=== PATIENT | male | born 1955 | race Caucasian/White ===

== ENCOUNTER → 2017-03-02 | Outpatient (CLI) | payer OTHER, BC ==
[~2017-03-02] MED LIST: ACETAMINOPHEN-1 EAC1 PO; ALBUTEROL INH; ALBUTEROL2.5 MG/0.1 INH; ALPRAZOLAM ER1 MG PO; ALPRAZOLAM1 MG PO; ASPIRIN EC81 M1 PO; ATORVASTATIN CA40 MG PO; AZITHROMYCIN PO; B12INJ INJECTION; CELEXA 20 MG TA20 M1 PO; CLEOCIN HCL150 MG PO; CYMBALTA30 MG PO; DEPAKOTE 250MG250 MG PO; DESYREL100 MG PO; DESYREL150 MG PO; DESYREL300 MG PO; DITROPAN XL10 M1 PO; DITROPAN XL10 MG PO; DIVALPROEX SOD250 MG PO; ENDOCET 7.5-321 EACH PO; FENOFIBRATE160 MG PO; GEMFIBROZIL 60600 M1 PO; GEMFIBROZIL 60600 MG PO; GLIPIZIDE 10 MG10 MG PO; GLUCOPHAGE1000 MG PO; GLUCOTROL10 MG PO; GLUMETZA1000 PO; HYDROCHLOROTHIA25 M1 PO; HYDROCODON-ACE1 EAC5 PO; IBUPROFEN 800800 M1 PO; JANUMET XR 1001 EACH PO; JANUVIA100 MG PO; LAMICTAL XR200 MG PO; LISINOPRIL20 MG PO; MELOXICAM7.5 MG PO; MOBIC15 MG PO; MOBIC7.5 MG PO; MUCINEX TA600 MG/TA1 PO; NEURONTIN600 MG PO; NORCO 10-325 T1 EACH PO; NORCO 5-325 TA1 EACH PO; OXYBUTYNIN 5 MG5 M2 PO; OXYBUTYNIN CHLO10 MG PO; PRAVACHOL 20 MG20 M1 PO; PREDNISONE 10 M10 M1 PO; REMERON15 MG PO; REMICADE 1100 MG/VIA; RISPERDAL 1 MG T1 MG PO; RISPERDAL4 M1 PO; VENTOLIN HFA 1818 GM INH; VENTOLIN17 GM INH; XANAX 0.5 MG0.5 M1 PO; XANAX 0.5 MG0.5 MG PO; ZANTAC 150MG T150 MG PO
== END ==
LOC: MRI 10:05
DX: R41.82 Altered mental status, unspecified (principal)

== ENCOUNTER 2017-10-22 11:25 | Inpatient (IN) | payer OTHER, BC ==
[~2017-10-22] VITALS: Ht 175.3 cm; Wt 99.8 kg
[2017-10-22] VITALS (11 sets, daily range): BP systolic 154–203; BP diastolic 90–145
--- NOTE | ~2017-10-22 | HC ---
[facility] [place] [address] CONSULTATION Name: INA HELMS Room #: 358-P [facility] IN M.R.#: [id number] Admission: 10/22/17 Attend Phys: Larry Perales DO Discharge: Date of : 55 Report #: [id number] THIS REPORT FOR: //name// CC: Lrary Hamilton DATE OF SERVICE: 10/22/2017 INDICATION: Hypertensive urgency. HISTORY OF PRESENT ILLNESS: This is a 62-year-old gentleman with a past medical history for CAD, diabetes mellitus, hypertension, presenting with right-sided weakness. For the past few days, he has noted weakness of his right side, slurred speech and unsteady gait. He denies any history of chest pains, dyspnea, palpitations or congestion. There is no history of fever, chills, nausea or diarrhea. In the ER, he was noted to be hypertensive with a systolic blood pressure of [address] of the head does not show any acute bleeds. PAST MEDICAL HISTORY: CAD with stent in 2000. Last cardiac catheterization in 2012 revealed patent LAD stents, moderate disease in a small diagonal artery. Echo from today reveals normal LV systolic function. History of bronchitis, hypertension, diabetes mellitus, hypertension, bipolar disorder, and osteoarthritis. ALLERGIES: INCLUDE PENICILLIN, LAMICTAL. MEDICATIONS: Please see the MAR for full listing of his meds. SOCIAL HISTORY: Negative for tobacco use. FAMILY HISTORY: Negative for premature CAD. REVIEW OF SYSTEMS: A full 10-point review of systems performed. Only the pertinent positives and negatives are described in the HPI. PHYSICAL EXAMINATION: VITAL SIGNS: Blood pressure is 150/80, heart rate is 70 beats per minute. GENERAL APPEARANCE: A mildly overweight male in no acute respiratory distress. HEAD AND EYES: Normocephalic. Sclerae are anicteric. ENT: Oral mucosa moist. NECK: Supple. LUNGS: Clear to auscultation. CARDIAC: Regular rate and rhythm. S1, S2 positive. ABDOMEN: Soft, nontender. Bowel sounds positive. EXTREMITIES: No cyanosis, no edema. [facility] [address] [place] [address] CONSULTATION Name: INA HELMS Room #: 358-[facility] IN M.R.#: [id number] Admission: 10/22/17 Attend Phys: Larry Perales DO Discharge: Date of : 55 Report #: [id number] ECG reveals sinus rhythm, otherwise unremarkable. LABORATORY VALUES: White count is 6.9, hemoglobin 17.1. Sodium is 135, creatinine is 0.9. Troponin is negative. ASSESSMENT AND PLAN: 1. Hypertensive urgency, his blood pressure is improved since his initial admission. The plan is to continue with his current medical regimen, although would not lower his systolic blood pressure below 140 mmHg given his neurologic presentation. If the blood pressure is above 170, consider giving IV hydralazine. 2. Coronary artery disease with remote stenting, stable with no anginal symptoms. Continue with aspirin. 3. Right-sided weakness, neuro followup. 4. Hypercholesterolemia, continue with statins. 5. Diabetes mellitus, continue with insulin and check fingersticks. 6. History of bronchitis, appears to be stable at this time. Thank you for allowing me to participate in the care of your patient. <ELECTRONICALLY SIGNED> By: Cirilo Martinez MD 10/23/17 0832 1642 [id number] Cirilo Martinez MD /nt
--- NOTE | ~2017-10-22 | 2DMMODE ---
[facility] [address] [place] [address] 2 D/M-MODE ECHOCARDIOGRAM Name: SCOOTERINA HENDERSON Room #: 358-P [facility] IN .R.#: [id number] Admission: 10/22/17 Attend Phys: Larry Perales, Discharge: Date of : 55 Date of Service: 10/22/17 1601 Report #: [id number] THIS REPORT FOR: //name// APPROVED REPORT Study performed: 10/22/2017 16:20:04 EXAM: Comprehensive 2D, Doppler, and color-flow Echocardiogram Patient Location: Echo lab Room #: [facility] Status: routine BSA: 2.15 HR: 78 bpm BP: 187/114 mmHg Rhythm: NSR Other Information Study Quality: Adequate Risk Factors: Cardiac Risk Factors: HTN, Hyperlipidemia, DM Indications CVA/TIA Echo Enhancing Agent Indication: Rule Out Septal Defect Agent(s) / Amount(s) Used: Agitated Saline 7 cc 2D Dimensions RVDd: 26.75 mm LVEF(%): 54.62 (>50%) IVSd: 11.05 (7-11mm) LVOT Diam: 23.03 (18-24mm) LVDd: 44.93 mm PWd: 10.66 (7-11mm) Ascending Ao: 31.10 (22-36mm) LVDs: 32.27 (25-40mm) Aortic Root: 33.70 mm Jasso's LVEF: 54.62 % Volumes Left Atrial Volume (Systole) Single Plane 4CH: 37.37 mL Single Plane 2CH: 42.83 mL LA ESV Index: 21.00 mL/m2 Aortic Valve AoV Peak Abdulkadir.: 1.23 m/s [facility] [place] [place] [address] 2 D/M-MODE ECHOCARDIOGRAM Name: INA HELMS Room #: 358-P [facility] IN ..#: [id number] Admission: 10/22/17 Attend Phys: Larry Perales, Discharge: Date of : 55 Date of Service: 10/22/17 1601 Report #: [id number] AO Peak Gr.: 6.09 mmHg LVOT Max P.33 mmHg LVOT Max V: 0.91 m/s ABRAHAM Vmax: 3.08 cm2 Mitral Valve E/A Ratio: 0.8 MV Decel. Time: 360.80 ms MV E Max Abdulkadir.: 0.69 m/s MV A Abdulkadir.: 0.85 m/s MV PHT: 104.63 ms IVRT: 156.86 ms TDI E/Lateral E': 13.80 E/Medial E': 17.25 Medial E' Abdulkadir.: 0.04 m/s Lateral E' Abdulkadir.: 0.05 m/s Pulmonary Valve PV Peak Abdulkadir.: 0.94 m/s PV Peak Gr.: 3.53 mmHg Pulmonary Vein P Vein S: 0.33 m/s P Vein A: 0.29 m/s P Vein D: 0.25 m/s P Vein A Dur.: 115.3 msec P Vein S/D Ratio: 1.32 Left Ventricle The left ventricle is normal size. There is normal LV segmental wall motion. Borderline concentric left ventricular hypertrophy. Left ventricular systolic function is normal. The left ventricular ejection fraction is within the normal range. LVEF is 55-60%. Grade I - abnormal relaxation pattern. Right Ventricle The right ventricle is normal size. The right ventricular systolic function is normal. Atria The left atrium size is normal. Injection of bubbles documented no interatrial shunt. The right atrium size is normal. Aortic Valve The aortic valve is normal in structure. No aortic regurgitation is present. There is no aortic valvular stenosis. Mitral Valve The mitral valve is normal in structure. There is no mitral valve [facility] [address] [place] [address] 2 D/M-MODE ECHOCARDIOGRAM Name: INA HELMS Room #: 358-P [facility] IN M.R.#: [id number] Admission: 10/22/17 Attend Phys: Larry Perales, Discharge: Date of : 55 Date of Service: 10/22/17 1601 Report #: [id number] regurgitation noted. No evidence of mitral valve stenosis. Tricuspid Valve The tricuspid valve is normal in structure. There is no tricuspid valve regurgitation noted. Pulmonic Valve The pulmonary valve is normal in structure. There is no pulmonic valvular regurgitation. Great Vessels The aortic root is normal in size. IVC is normal in size and collapses with >50% inspiration. Pericardium There is no pericardial effusion. <Conclusion> The left ventricle is normal size. Left ventricular systolic function is normal. Grade I - abnormal relaxation pattern. The right ventricle is normal size. Injection of bubbles documented no interatrial shunt. The aortic valve is normal in structure. The mitral valve is normal in structure. <ELECTRONICALLY SIGNED> By: Cirilo Martinez MD 10/22/17 160 160 00 Cirilo Martinez MD /INF
--- NOTE | ~2017-10-22 | HC ---
[facility] [place] [address] CONSULTATION Name: INA HELMS Room #: 358-P [facility] IN M.R.#: [id number] Admission: 10/22/17 Attend Phys: Larry Perales DO Discharge: 10/23/17 Date of : 55 Report #: [id number] THIS REPORT FOR: //name// CC: Larry Hamilton DATE OF SERVICE: 10/23/2017 HISTORY OF PRESENT ILLNESS: This is a 62-year-old male patient who was evaluated by me for the numbness on the right side of the body. This has actually started day prior to the admission. It started spontaneously without any trauma. There was only minor weakness associated with it. He may have had some slurring of the speech, but it was minor. The symptoms have mostly resolved. This patient was admitted and they forgot to call me the consult and forgot to put it in the computer. It was done this evening and I was called to see this patient this evening and I did that. REVIEW OF SYSTEMS: Indicate that this patient does have a history of stent placement. There is a question of stroke 20 years ago, but he never had any symptoms from it. He has longstanding hypertension and this has been difficult to control. He is also diabetic. It is not clear how much control there is for that also. He is not a smoker. He has a bipolar disorder and he indicates he is disabled because of that. Otherwise, he feels back to his baseline and he does not think there is any new eye, ENT, cardiac, respiratory, GI, , musculoskeletal, constitutional, dermatological, hematological, psychiatric, throat, allergic symptom associated with present symptomatology. PAST MEDICAL HISTORY: Question of stroke, but history is not clear. FAMILY HISTORY: Negative for seizures or epilepsy. SOCIAL HISTORY: He says he does not smoke or drink any alcohol. PHYSICAL EXAMINATION: Indicate he is alert, responsive, oriented. His speech, concentration, fund of knowledge and memory is at his baseline. His cranial nerve examination 2-12 is unremarkable. He does have some subjective numbness on the right side of the face and right side of the body. His strength looks mostly symmetrical and so is tone. Reflexes and even sensation objectively he can feel the touch without any problem. He does not have any papilledema. There is no carotid bruit. He has no cerebellar sign. He is a well-developed individual who does not have any dysmorphic features of eyes, ears and face. His vision and hearing looks adequate. Cardiac examination does not show any atrial fibrillation or any respiratory difficulty. There is no rhonchi on either side. Heart sounds looks unremarkable. His pulses are difficult to [facility] [address] [place] [address] CONSULTATION Name: INA HELMS Room #: 358-P [facility] IN M.R.#: [id number] Admission: 10/22/17 Attend Phys: Larry Perales DO Discharge: 10/23/17 Date of : 55 Report #: [id number] feel, but he has no edema, cyanosis or jaundice. Last blood pressure is 144/90, respirations 18, pulse is 90, temperature is 97.9. LABORATORY DATA: Indicate a normal white count. Last blood glucose was 209. His LDL was 54. His CT angiogram was reviewed with on-call radiologist ibeth. He does not think there is any significant finding there and he correlated with the MRI and he did not think any further workup is indicated. I discussed that aspect with the patient and he wants to go home. IMPRESSION: 1. Lacunar cerebrovascular accident. 2. Diabetes and hypertension. 3. History of bipolar disorder. RECOMMENDATION: I discussed the situation with the patient and my recommendation is: 1. Full dose aspirin. 2. Controlling the risk factor tightly especially the diabetes and hypertension. 3. He needs some other workup like homocysteine and cardiolipin antibodies, collagen vascular workup. That cannot be done as an inpatient because he desperately wants to go home. He can go home and follow up with me in 1 week and we can try to do that workup as an outpatient. 4. I discussed with him all the signs for the stroke for which he needs to go to Emergency Room emergently and he understands that. more than 50 minutes of time was spent taking care of this patient today and majority of that time was spent counseling the patient on above matters Thank you very much for this referral and if you have any question, please feel free to contact me. <ELECTRONICALLY SIGNED> By: Himanshu Urena MD 10/27/17 0943 1855 21 Himanshu Urena MD /nt
--- NOTE | ~2017-10-22 | EKG ---
[address] [place] [address] ELECTROCARDIOGRAM REPORT Name: INA HELMS Room #: 358-P ADM IN M.R.#: [id number] Admission: 10/22/17 Attend Phys: Larry Perales DO Discharge: Date of : 55 Report #: [id number] THIS REPORT FOR: //name// 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
[2017-10-22 11:44] LABS: HEMATOCRIT 47.6 % (42.0-52.0); HEMOGLOBIN 17.1 gm/dL (14.0-18.0); MCH 32.6 pg (26.0-34.0); MCHC 35.9 g/dL (28.0-37.0); MCV 90.8 fL (80.0-100.0); RBC 5.24 mil/uL (4.50-6.00); RDW 13.2 % (10.5-14.5); WBC 6.9 thou/uL (4.0-11.0)
[2017-10-22] MEDS ORDERED: SULINDAC 150 M150 MG PO (11:52)
[2017-10-22] MEDS ORDERED: ZANTAC 150MG T150 MG PO (11:52)
[2017-10-22] MEDS ORDERED: HYDROCHLOROTHIA25 M2 PO (11:52)
[2017-10-22] MEDS ORDERED: LISINOPRIL20 MG PO (11:52)
[2017-10-22] MEDS ORDERED: JANUMET 50-5001 EACH PO (11:52)
[2017-10-22] MEDS ORDERED: VOLTAREN GEL 1100 G2 TOP (11:53)
[2017-10-22] MEDS ORDERED: DOXYCYCLINE 10100 MG PO (11:53)
[2017-10-22] MEDS ORDERED: KETOCONAZOLE15 GM (11:54)
[2017-10-22] MEDS ORDERED: ALBUTEROL2.5 MG/31 INH (11:55)
[2017-10-22] MEDS ORDERED: VENTOLIN HFA 1818 GM INH (11:55)
[2017-10-22] MEDS ORDERED: OLANZAPINE10 MG PO (11:56)
[2017-10-22] MEDS ORDERED: XANAX1 MG PO (11:56)
[2017-10-22] MEDS ORDERED: TRAZODONE HCL100 MG PO (11:57)
[2017-10-22] MEDS ORDERED: DICLOFENAC SODI75 MG PO (11:57)
[2017-10-22] MEDS ORDERED: HYDROCODONE-AP1 EAC6 PO (11:57)
[2017-10-22] MEDS ORDERED: UNICOMPLEX M TA1 TA1 PO (11:58)
[2017-10-22] MEDS ORDERED: OXYBUTYNIN 5 MG5 M2 PO (11:58)
[2017-10-22 12:07] LABS: PROTIME 10.3 Seconds (9.3-11.4)
[2017-10-22 12:17] LABS: ANION GAP 9 mmol/L (7-16); BUN 9 mg/dL (7-18); CALCIUM 9.1 mg/dL (8.5-10.1); CHLORIDE 100 mmol/L (98-107); CO2 26 mmol/L (21-32); CREATININE 0.9 mg/dL (0.7-1.3); GLUCOSE 259 mg/dL (74-106); POTASSIUM 3.9 mmol/L (3.5-5.1); SODIUM 135 mmol/L (136-145)
[2017-10-22 12:20] LABS: URINE BILIRUBIN NEGATIVE (Negative); URINE BLOOD NEGATIVE (Negative); URINE COLOR YELLOW; URINE GLUCOSE-RANDOM* 2+ (Negative); URINE KETONES NEGATIVE (Negative); URINE LEUKOCYTES-REFLEX NEGATIVE (Negative); URINE PROTEIN (DIPSTICK) NEGATIVE (Negative); URINE UROBILINOGEN 0.2 E.U./dl (0.2-1.0)
[2017-10-22 12:26] LABS: TROPONIN-I < 0.04 ng/mL (<0.06)
[2017-10-22 16:14] LABS: AMP/METHAMP Negative (Negative); BARBITURATES Negative (Negative); BENZODIAZEPINES POSITIVE (Negative); COCAINE Negative (Negative); METHADONE Negative (Negative); OPIATES Negative (Negative); PCP Negative (Negative)
[2017-10-22 17:23] LABS: FOLIC ACID > 40.0 ng/mL (8.6-58.9)
[2017-10-23] VITALS (10 sets, daily range): BP systolic 136–176; BP diastolic 85–101
[2017-10-23 03:28] LABS: CALCIUM 8.9 mg/dL (8.5-10.1); MAGNESIUM 1.9 mg/dL (1.8-2.4); POTASSIUM 3.5 mmol/L (3.5-5.1)
[2017-10-23] MEDS ORDERED: LIPITOR 20 MG T20 M1 PO (19:12)
[2017-10-23] MEDS ORDERED: COREG6.25 MG PO (19:12)
[2017-10-23] MEDS ORDERED: ASPIRIN EC325 MG PO (19:20)
== END 2017-10-23 19:55 | disposition home or self-care (01) | DRG 65 ==
LOC: ER 11:25 → EROBS 13:35 → 3W 14:21
PROVIDERS: Emergency Medicine; Family Medicine; Nurse Practitioner
DX: I63.9 Cerebral infarction, unspecified (principal); I16.1 Hypertensive emergency; I10 Essential (primary) hypertension; I25.10 Atherosclerotic heart disease of native coronary artery without angina pectoris; I16.0 Hypertensive urgency; E78.00 Pure hypercholesterolemia, unspecified; M79.7 Fibromyalgia; Z66 Do not resuscitate; F31.9 Bipolar disorder, unspecified; M19.90 Unspecified osteoarthritis, unspecified site; E11.65 Type 2 diabetes mellitus with hyperglycemia; F17.210 Nicotine dependence, cigarettes, uncomplicated; Z79.84 Long term (current) use of oral hypoglycemic drugs; Z79.4 Long term (current) use of insulin; Z79.82 Long term (current) use of aspirin; Z79.899 Other long term (current) drug therapy; Z88.0 Allergy status to penicillin; Z88.8 Allergy status to other drugs, medicaments and biological substances; Z82.49 Family history of ischemic heart disease and other diseases of the circulatory system; Z80.9 Family history of malignant neoplasm, unspecified; Z83.3 Family history of diabetes mellitus
CPT/HCPCS: 10779

== ENCOUNTER → 2017-12-01 | Outpatient (CLI) | payer OTHER, BC ==
[~2017-12-01] MED LIST changes: +ALBUTEROL2.5 MG/31 INH; +ASPIRIN EC325 MG PO; +COREG6.25 MG PO; +DICLOFENAC SODI75 MG PO; +DOXYCYCLINE 10100 MG PO; +HYDROCHLOROTHIA25 M2 PO; +HYDROCODONE-AP1 EAC6 PO; +JANUMET 50-5001 EACH PO; +KETOCONAZOLE15 GM; +LIPITOR 20 MG T20 M1 PO; +OLANZAPINE10 MG PO; +SULINDAC 150 M150 MG PO; +TRAZODONE HCL100 MG PO; +UNICOMPLEX M TA1 TA1 PO; +VOLTAREN GEL 1100 G2 TOP; +XANAX1 MG PO
== END ==
LOC: MRI 13:50
DX: I63.9 Cerebral infarction, unspecified (principal); I10 Essential (primary) hypertension; E11.9 Type 2 diabetes mellitus without complications; I25.10 Atherosclerotic heart disease of native coronary artery without angina pectoris; E78.5 Hyperlipidemia, unspecified

== ENCOUNTER → 2018-06-15 | Outpatient (CLI) | payer OTHER, BC | LOC: MRI 09:56 | DX: G45.9 Transient cerebral ischemic attack, unspecified (principal); E11.59 Type 2 diabetes mellitus with other circulatory complications; Z79.4 Long term (current) use of insulin; Z86.73 Personal history of transient ischemic attack (TIA), and cerebral infarction without residual deficits ==

== ENCOUNTER 2018-09-30 09:25 | Emergency (ER) | payer OTHER, BC ==
[~2018-09-30] VITALS: Ht 175.3 cm; Wt 102.1 kg
[2018-09-30] MEDS ORDERED: ZALEPLON 10 MG10 M1 PO (09:41)
[2018-09-30] MEDS ORDERED: HUMALOG100 UNIT/1 SUBQ (09:43)
[2018-09-30] MEDS ORDERED: LANTUS SUBQ (09:44)
[2018-09-30] MEDS ORDERED: LIDOCAINE1 EACH TRANSDERM (11:21)
[2018-09-30] MEDS ORDERED: NORCO 5-325 TA1 EACH PO (11:21)
[2018-09-30 11:44] VITALS: BP 168/73
== END 2018-09-30 11:45 | disposition home or self-care (01) ==
LOC: ER 09:25
DX: S22.31XA Fracture of one rib, right side, initial encounter for closed fracture (principal); E10.9 Type 1 diabetes mellitus without complications; I10 Essential (primary) hypertension; E78.5 Hyperlipidemia, unspecified; G47.00 Insomnia, unspecified; Z87.891 Personal history of nicotine dependence; Z88.0 Allergy status to penicillin; Z96.651 Presence of right artificial knee joint; Z95.5 Presence of coronary angioplasty implant and graft; Z96.612 Presence of left artificial shoulder joint; W18.39XA Other fall on same level, initial encounter; Y92.89 Other specified places as the place of occurrence of the external cause; Y93.89 Activity, other specified; Y99.8 Other external cause status

== ENCOUNTER → 2019-11-29 | Outpatient (CLI) | payer OTHER, BC ==
[~2019-11-29] MED LIST changes: +HUMALOG100 UNIT/1 SUBQ; +LANTUS SUBQ; +LIDOCAINE1 EACH TRANSDERM; +ZALEPLON 10 MG10 M1 PO
== END ==
LOC: HYPER 14:07
DX: R21 Rash and other nonspecific skin eruption (principal); B37.2 Candidiasis of skin and nail; A60.02 Herpesviral infection of other male genital organs; D51.0 Vitamin B12 deficiency anemia due to intrinsic factor deficiency; E66.01 Morbid (severe) obesity due to excess calories; E78.5 Hyperlipidemia, unspecified; G46.4 Cerebellar stroke syndrome; J01.40 Acute pansinusitis, unspecified; I10 Essential (primary) hypertension; F25.0 Schizoaffective disorder, bipolar type; F31.9 Bipolar disorder, unspecified; F41.9 Anxiety disorder, unspecified; Z86.73 Personal history of transient ischemic attack (TIA), and cerebral infarction without residual deficits; Z87.891 Personal history of nicotine dependence; Z79.82 Long term (current) use of aspirin; Z68.34 Body mass index [BMI] 34.0-34.9, adult

== ENCOUNTER → 2019-12-06 | Outpatient (CLI) | payer OTHER, BC | LOC: HYPER 08:59 | DX: E11.628 Type 2 diabetes mellitus with other skin complications (principal); B37.2 Candidiasis of skin and nail; R21 Rash and other nonspecific skin eruption; J01.40 Acute pansinusitis, unspecified; A60.02 Herpesviral infection of other male genital organs; D51.0 Vitamin B12 deficiency anemia due to intrinsic factor deficiency; E78.5 Hyperlipidemia, unspecified; G46.4 Cerebellar stroke syndrome; I10 Essential (primary) hypertension; E66.01 Morbid (severe) obesity due to excess calories; F41.9 Anxiety disorder, unspecified; F31.9 Bipolar disorder, unspecified; Z68.34 Body mass index [BMI] 34.0-34.9, adult; Z86.73 Personal history of transient ischemic attack (TIA), and cerebral infarction without residual deficits; Z87.891 Personal history of nicotine dependence; Z79.4 Long term (current) use of insulin; Z79.82 Long term (current) use of aspirin ==

== ENCOUNTER 2019-12-14 15:17 | Emergency (ER) | payer OTHER, BC ==
[~2019-12-14] VITALS: Ht 172.7 cm; Wt 104.3 kg
[2019-12-14] MEDS ORDERED: MOBIC15 MG PO (17:08)
[2019-12-14 17:32] VITALS: BP 163/97
== END 2019-12-14 17:46 | disposition home or self-care (01) ==
LOC: ER 15:17
DX: M25.561 Pain in right knee (principal); I10 Essential (primary) hypertension; I25.10 Atherosclerotic heart disease of native coronary artery without angina pectoris; E10.9 Type 1 diabetes mellitus without complications; E78.5 Hyperlipidemia, unspecified; Z96.612 Presence of left artificial shoulder joint; Z95.5 Presence of coronary angioplasty implant and graft; Z87.891 Personal history of nicotine dependence; Z88.0 Allergy status to penicillin; Z88.8 Allergy status to other drugs, medicaments and biological substances

== ENCOUNTER → 2019-12-20 | Outpatient (CLI) | payer OTHER, BC | LOC: HYPER 09:12 | DX: R21 Rash and other nonspecific skin eruption (principal); B37.2 Candidiasis of skin and nail; A60.02 Herpesviral infection of other male genital organs; E66.01 Morbid (severe) obesity due to excess calories; E11.9 Type 2 diabetes mellitus without complications; D51.0 Vitamin B12 deficiency anemia due to intrinsic factor deficiency; E78.5 Hyperlipidemia, unspecified; G46.4 Cerebellar stroke syndrome; I10 Essential (primary) hypertension; J01.40 Acute pansinusitis, unspecified; F31.9 Bipolar disorder, unspecified; F41.9 Anxiety disorder, unspecified; F25.0 Schizoaffective disorder, bipolar type; Z86.73 Personal history of transient ischemic attack (TIA), and cerebral infarction without residual deficits; Z68.34 Body mass index [BMI] 34.0-34.9, adult; Z95.1 Presence of aortocoronary bypass graft; Z87.891 Personal history of nicotine dependence ==

== ENCOUNTER → 2020-01-03 | Outpatient (CLI) | payer OTHER, BC | LOC: HYPER 10:02 | DX: E11.628 Type 2 diabetes mellitus with other skin complications (principal); B37.2 Candidiasis of skin and nail; R21 Rash and other nonspecific skin eruption; J01.40 Acute pansinusitis, unspecified; A60.02 Herpesviral infection of other male genital organs; E78.5 Hyperlipidemia, unspecified; G46.4 Cerebellar stroke syndrome; D51.0 Vitamin B12 deficiency anemia due to intrinsic factor deficiency; I10 Essential (primary) hypertension; E66.01 Morbid (severe) obesity due to excess calories; F25.0 Schizoaffective disorder, bipolar type; F31.9 Bipolar disorder, unspecified; F41.9 Anxiety disorder, unspecified; Z68.34 Body mass index [BMI] 34.0-34.9, adult; Z86.73 Personal history of transient ischemic attack (TIA), and cerebral infarction without residual deficits; Z87.891 Personal history of nicotine dependence; Z95.1 Presence of aortocoronary bypass graft ==

== ENCOUNTER → 2020-01-10 | Outpatient (CLI) | payer OTHER, BC | LOC: HYPER 10:16 | DX: E11.622 Type 2 diabetes mellitus with other skin ulcer (principal); L89.323 Pressure ulcer of left buttock, stage 3; L89.313 Pressure ulcer of right buttock, stage 3; L98.411 Non-pressure chronic ulcer of buttock limited to breakdown of skin; L89.153 Pressure ulcer of sacral region, stage 3; L98.491 Non-pressure chronic ulcer of skin of other sites limited to breakdown of skin; R21 Rash and other nonspecific skin eruption; B37.2 Candidiasis of skin and nail; A60.02 Herpesviral infection of other male genital organs; D51.0 Vitamin B12 deficiency anemia due to intrinsic factor deficiency; E78.5 Hyperlipidemia, unspecified; G46.4 Cerebellar stroke syndrome; I10 Essential (primary) hypertension; E66.01 Morbid (severe) obesity due to excess calories; F25.0 Schizoaffective disorder, bipolar type; F31.9 Bipolar disorder, unspecified; F41.9 Anxiety disorder, unspecified; Z86.73 Personal history of transient ischemic attack (TIA), and cerebral infarction without residual deficits; Z87.891 Personal history of nicotine dependence; Z68.34 Body mass index [BMI] 34.0-34.9, adult; Z79.82 Long term (current) use of aspirin; Z79.4 Long term (current) use of insulin ==

== ENCOUNTER → 2020-01-17 | Outpatient (CLI) | payer OTHER, BC | LOC: HYPER 09:10 | DX: E11.622 Type 2 diabetes mellitus with other skin ulcer (principal); L89.323 Pressure ulcer of left buttock, stage 3; L89.313 Pressure ulcer of right buttock, stage 3; L98.411 Non-pressure chronic ulcer of buttock limited to breakdown of skin; L89.153 Pressure ulcer of sacral region, stage 3; L98.491 Non-pressure chronic ulcer of skin of other sites limited to breakdown of skin; R21 Rash and other nonspecific skin eruption; B37.2 Candidiasis of skin and nail; J01.40 Acute pansinusitis, unspecified; A60.02 Herpesviral infection of other male genital organs; D51.0 Vitamin B12 deficiency anemia due to intrinsic factor deficiency; E78.5 Hyperlipidemia, unspecified; G46.4 Cerebellar stroke syndrome; I10 Essential (primary) hypertension; E66.01 Morbid (severe) obesity due to excess calories; F25.0 Schizoaffective disorder, bipolar type; F41.9 Anxiety disorder, unspecified; F31.9 Bipolar disorder, unspecified; Z68.36 Body mass index [BMI] 36.0-36.9, adult; Z86.73 Personal history of transient ischemic attack (TIA), and cerebral infarction without residual deficits; Z87.891 Personal history of nicotine dependence; Z79.82 Long term (current) use of aspirin; Z79.4 Long term (current) use of insulin ==

== ENCOUNTER → 2020-01-25 | Outpatient (CLI) | payer OTHER, BC | LOC: HYPER 14:58 | DX: E11.622 Type 2 diabetes mellitus with other skin ulcer (principal); L89.323 Pressure ulcer of left buttock, stage 3; L89.313 Pressure ulcer of right buttock, stage 3; L98.411 Non-pressure chronic ulcer of buttock limited to breakdown of skin; L89.153 Pressure ulcer of sacral region, stage 3; L98.491 Non-pressure chronic ulcer of skin of other sites limited to breakdown of skin; R21 Rash and other nonspecific skin eruption; B37.2 Candidiasis of skin and nail; J01.40 Acute pansinusitis, unspecified; A60.02 Herpesviral infection of other male genital organs; D51.0 Vitamin B12 deficiency anemia due to intrinsic factor deficiency; E78.5 Hyperlipidemia, unspecified; G46.4 Cerebellar stroke syndrome; I10 Essential (primary) hypertension; E66.01 Morbid (severe) obesity due to excess calories; F25.0 Schizoaffective disorder, bipolar type; F41.9 Anxiety disorder, unspecified; F31.9 Bipolar disorder, unspecified; Z68.36 Body mass index [BMI] 36.0-36.9, adult; Z87.891 Personal history of nicotine dependence; Z79.4 Long term (current) use of insulin; Z79.82 Long term (current) use of aspirin ==

== ENCOUNTER → 2020-02-01 | Outpatient (CLI) | payer OTHER, BC | LOC: HYPER 09:37 | DX: E11.622 Type 2 diabetes mellitus with other skin ulcer (principal); L89.153 Pressure ulcer of sacral region, stage 3; L98.491 Non-pressure chronic ulcer of skin of other sites limited to breakdown of skin; R21 Rash and other nonspecific skin eruption; A60.02 Herpesviral infection of other male genital organs; B37.2 Candidiasis of skin and nail; D51.0 Vitamin B12 deficiency anemia due to intrinsic factor deficiency; J01.40 Acute pansinusitis, unspecified; E66.01 Morbid (severe) obesity due to excess calories; E78.5 Hyperlipidemia, unspecified; G46.4 Cerebellar stroke syndrome; I10 Essential (primary) hypertension; F25.0 Schizoaffective disorder, bipolar type; F31.9 Bipolar disorder, unspecified; F41.9 Anxiety disorder, unspecified; Z86.73 Personal history of transient ischemic attack (TIA), and cerebral infarction without residual deficits; Z87.891 Personal history of nicotine dependence; Z95.1 Presence of aortocoronary bypass graft; Z68.34 Body mass index [BMI] 34.0-34.9, adult ==

== ENCOUNTER → 2020-02-08 | Outpatient (CLI) | payer OTHER, BC | LOC: HYPER 14:46 | DX: E11.622 Type 2 diabetes mellitus with other skin ulcer (principal); L89.313 Pressure ulcer of right buttock, stage 3; L89.323 Pressure ulcer of left buttock, stage 3; L98.411 Non-pressure chronic ulcer of buttock limited to breakdown of skin; L89.153 Pressure ulcer of sacral region, stage 3; L98.491 Non-pressure chronic ulcer of skin of other sites limited to breakdown of skin; R21 Rash and other nonspecific skin eruption; A60.02 Herpesviral infection of other male genital organs; B37.2 Candidiasis of skin and nail; D51.0 Vitamin B12 deficiency anemia due to intrinsic factor deficiency; E66.01 Morbid (severe) obesity due to excess calories; E78.5 Hyperlipidemia, unspecified; G46.4 Cerebellar stroke syndrome; I10 Essential (primary) hypertension; J01.40 Acute pansinusitis, unspecified; F25.0 Schizoaffective disorder, bipolar type; F31.9 Bipolar disorder, unspecified; F41.9 Anxiety disorder, unspecified; Z86.73 Personal history of transient ischemic attack (TIA), and cerebral infarction without residual deficits; Z87.891 Personal history of nicotine dependence; Z95.1 Presence of aortocoronary bypass graft; Z68.34 Body mass index [BMI] 34.0-34.9, adult ==

== ENCOUNTER → 2020-02-15 | Outpatient (CLI) | payer OTHER, BC | LOC: HYPER 10:36 | DX: E11.622 Type 2 diabetes mellitus with other skin ulcer (principal); L89.313 Pressure ulcer of right buttock, stage 3; L89.323 Pressure ulcer of left buttock, stage 3; L98.411 Non-pressure chronic ulcer of buttock limited to breakdown of skin; A60.02 Herpesviral infection of other male genital organs; E66.01 Morbid (severe) obesity due to excess calories; D51.0 Vitamin B12 deficiency anemia due to intrinsic factor deficiency; L30.9 Dermatitis, unspecified; B37.2 Candidiasis of skin and nail; R21 Rash and other nonspecific skin eruption; I10 Essential (primary) hypertension; E78.5 Hyperlipidemia, unspecified; G46.4 Cerebellar stroke syndrome; J01.40 Acute pansinusitis, unspecified; F25.0 Schizoaffective disorder, bipolar type; F31.9 Bipolar disorder, unspecified; F41.9 Anxiety disorder, unspecified; Z86.73 Personal history of transient ischemic attack (TIA), and cerebral infarction without residual deficits; Z95.1 Presence of aortocoronary bypass graft; Z87.891 Personal history of nicotine dependence ==

== ENCOUNTER → 2020-02-29 | Outpatient (CLI) | payer OTHER, BC | LOC: HYPER 10:26 | DX: E11.622 Type 2 diabetes mellitus with other skin ulcer (principal); L89.153 Pressure ulcer of sacral region, stage 3; L98.491 Non-pressure chronic ulcer of skin of other sites limited to breakdown of skin; R21 Rash and other nonspecific skin eruption; A60.02 Herpesviral infection of other male genital organs; E66.01 Morbid (severe) obesity due to excess calories; E78.5 Hyperlipidemia, unspecified; D51.0 Vitamin B12 deficiency anemia due to intrinsic factor deficiency; G46.4 Cerebellar stroke syndrome; G89.29 Other chronic pain; I10 Essential (primary) hypertension; J01.40 Acute pansinusitis, unspecified; F25.0 Schizoaffective disorder, bipolar type; F31.9 Bipolar disorder, unspecified; F41.9 Anxiety disorder, unspecified; Z87.891 Personal history of nicotine dependence; Z86.73 Personal history of transient ischemic attack (TIA), and cerebral infarction without residual deficits; Z95.1 Presence of aortocoronary bypass graft ==

== ENCOUNTER → 2020-03-07 | Outpatient (CLI) | payer OTHER, BC | LOC: HYPER 11:03 | DX: E11.622 Type 2 diabetes mellitus with other skin ulcer (principal); L89.313 Pressure ulcer of right buttock, stage 3; L89.323 Pressure ulcer of left buttock, stage 3; L89.153 Pressure ulcer of sacral region, stage 3; R21 Rash and other nonspecific skin eruption; A60.02 Herpesviral infection of other male genital organs; D51.0 Vitamin B12 deficiency anemia due to intrinsic factor deficiency; E66.01 Morbid (severe) obesity due to excess calories; E78.5 Hyperlipidemia, unspecified; I10 Essential (primary) hypertension; G46.4 Cerebellar stroke syndrome; J01.40 Acute pansinusitis, unspecified; F31.9 Bipolar disorder, unspecified; F25.0 Schizoaffective disorder, bipolar type; F41.9 Anxiety disorder, unspecified; Z87.891 Personal history of nicotine dependence; Z86.73 Personal history of transient ischemic attack (TIA), and cerebral infarction without residual deficits; Z68.34 Body mass index [BMI] 34.0-34.9, adult; Z95.1 Presence of aortocoronary bypass graft ==

== ENCOUNTER → 2020-03-14 | Outpatient (CLI) | payer OTHER, BC | LOC: HYPER 09:07 | DX: E11.622 Type 2 diabetes mellitus with other skin ulcer (principal); L89.153 Pressure ulcer of sacral region, stage 3; L89.313 Pressure ulcer of right buttock, stage 3; L89.323 Pressure ulcer of left buttock, stage 3; L98.411 Non-pressure chronic ulcer of buttock limited to breakdown of skin; R21 Rash and other nonspecific skin eruption; A60.02 Herpesviral infection of other male genital organs; E66.01 Morbid (severe) obesity due to excess calories; E78.5 Hyperlipidemia, unspecified; D51.0 Vitamin B12 deficiency anemia due to intrinsic factor deficiency; G46.4 Cerebellar stroke syndrome; I10 Essential (primary) hypertension; J01.40 Acute pansinusitis, unspecified; F25.0 Schizoaffective disorder, bipolar type; F31.9 Bipolar disorder, unspecified; F41.9 Anxiety disorder, unspecified; Z68.36 Body mass index [BMI] 36.0-36.9, adult; Z68.34 Body mass index [BMI] 34.0-34.9, adult; Z87.891 Personal history of nicotine dependence; Z95.1 Presence of aortocoronary bypass graft; Z86.73 Personal history of transient ischemic attack (TIA), and cerebral infarction without residual deficits ==

== ENCOUNTER → 2020-03-28 | Outpatient (CLI) | payer OTHER, BC | LOC: HYPER 10:25 | DX: E11.622 Type 2 diabetes mellitus with other skin ulcer (principal); L89.153 Pressure ulcer of sacral region, stage 3; L89.313 Pressure ulcer of right buttock, stage 3; L89.323 Pressure ulcer of left buttock, stage 3; L98.412 Non-pressure chronic ulcer of buttock with fat layer exposed; L98.491 Non-pressure chronic ulcer of skin of other sites limited to breakdown of skin; R21 Rash and other nonspecific skin eruption; A60.02 Herpesviral infection of other male genital organs; E66.01 Morbid (severe) obesity due to excess calories; D51.0 Vitamin B12 deficiency anemia due to intrinsic factor deficiency; E78.5 Hyperlipidemia, unspecified; G89.29 Other chronic pain; G46.4 Cerebellar stroke syndrome; I10 Essential (primary) hypertension; J01.40 Acute pansinusitis, unspecified; F31.9 Bipolar disorder, unspecified; F25.0 Schizoaffective disorder, bipolar type; F41.9 Anxiety disorder, unspecified; Z87.891 Personal history of nicotine dependence; Z86.73 Personal history of transient ischemic attack (TIA), and cerebral infarction without residual deficits; Z68.34 Body mass index [BMI] 34.0-34.9, adult; Z95.1 Presence of aortocoronary bypass graft ==

== ENCOUNTER → 2020-04-11 | Outpatient (CLI) | payer OTHER, BC | LOC: HYPER 07:20 | PROVIDERS: ATTEND Emergency Medicine | DX: E11.622 Type 2 diabetes mellitus with other skin ulcer (principal); L89.153 Pressure ulcer of sacral region, stage 3; L98.491 Non-pressure chronic ulcer of skin of other sites limited to breakdown of skin; L89.313 Pressure ulcer of right buttock, stage 3; L89.323 Pressure ulcer of left buttock, stage 3; L98.411 Non-pressure chronic ulcer of buttock limited to breakdown of skin; R21 Rash and other nonspecific skin eruption; A60.02 Herpesviral infection of other male genital organs; D51.0 Vitamin B12 deficiency anemia due to intrinsic factor deficiency; E66.01 Morbid (severe) obesity due to excess calories; E78.5 Hyperlipidemia, unspecified; G89.29 Other chronic pain; G46.4 Cerebellar stroke syndrome; I10 Essential (primary) hypertension; J01.40 Acute pansinusitis, unspecified; F25.0 Schizoaffective disorder, bipolar type; F31.9 Bipolar disorder, unspecified; F41.9 Anxiety disorder, unspecified; Z86.73 Personal history of transient ischemic attack (TIA), and cerebral infarction without residual deficits; Z68.36 Body mass index [BMI] 36.0-36.9, adult; Z87.891 Personal history of nicotine dependence; Z95.1 Presence of aortocoronary bypass graft ==

== ENCOUNTER → 2020-04-25 | Outpatient (CLI) | payer OTHER, BC | LOC: HYPER 09:23 | PROVIDERS: ATTEND Emergency Medicine | DX: E11.622 Type 2 diabetes mellitus with other skin ulcer (principal); L89.313 Pressure ulcer of right buttock, stage 3; L89.323 Pressure ulcer of left buttock, stage 3; L98.411 Non-pressure chronic ulcer of buttock limited to breakdown of skin; R21 Rash and other nonspecific skin eruption; A60.02 Herpesviral infection of other male genital organs; E66.01 Morbid (severe) obesity due to excess calories; E78.5 Hyperlipidemia, unspecified; D51.0 Vitamin B12 deficiency anemia due to intrinsic factor deficiency; G46.4 Cerebellar stroke syndrome; I10 Essential (primary) hypertension; J01.40 Acute pansinusitis, unspecified; F25.0 Schizoaffective disorder, bipolar type; F41.9 Anxiety disorder, unspecified; F31.9 Bipolar disorder, unspecified; Z68.34 Body mass index [BMI] 34.0-34.9, adult; Z95.1 Presence of aortocoronary bypass graft; Z87.891 Personal history of nicotine dependence; Z86.73 Personal history of transient ischemic attack (TIA), and cerebral infarction without residual deficits ==

== ENCOUNTER → 2020-05-02 | Outpatient (CLI) | payer OTHER, BC | LOC: HYPER 08:42 | PROVIDERS: ATTEND Emergency Medicine Emergency Medical Services | DX: R21 Rash and other nonspecific skin eruption (principal); A60.02 Herpesviral infection of other male genital organs; E11.9 Type 2 diabetes mellitus without complications; E66.01 Morbid (severe) obesity due to excess calories; E78.5 Hyperlipidemia, unspecified; D51.0 Vitamin B12 deficiency anemia due to intrinsic factor deficiency; G89.29 Other chronic pain; G46.4 Cerebellar stroke syndrome; I10 Essential (primary) hypertension; J01.40 Acute pansinusitis, unspecified; F41.9 Anxiety disorder, unspecified; F31.9 Bipolar disorder, unspecified; F25.0 Schizoaffective disorder, bipolar type; Z86.73 Personal history of transient ischemic attack (TIA), and cerebral infarction without residual deficits; Z95.1 Presence of aortocoronary bypass graft; Z68.36 Body mass index [BMI] 36.0-36.9, adult; Z87.891 Personal history of nicotine dependence ==

== ENCOUNTER → 2020-05-16 | Outpatient (CLI) | payer OTHER, BC ==
[~2020-05-16] MED LIST changes: +CARVEDILOL6.25 M1 PO; +HYDROCODON-ACE1 EAC7 PO; +JARDIANCE25 MG PO; +KEFLEX500 M1 PO; +NEURONTIN 300M300 M2 PO; +OLANZAPINE15 M1 PO; +OMEPRAZOLE 20 M20 M1 PO; +PROAIR HFA8.5 GM INH; +ROPINIROLE HCL0.5 MG PO; +ROSUVASTATIN CA20 MG PO; +SENNA-S TABLET1 EACH PO; +TRAZODONE HCL50 MG PO; +ULTRAM50 MG PO
== END ==
LOC: HYPER 09:50
PROVIDERS: ATTEND Emergency Medicine
DX: E11.628 Type 2 diabetes mellitus with other skin complications (principal); R21 Rash and other nonspecific skin eruption; A60.02 Herpesviral infection of other male genital organs; J01.40 Acute pansinusitis, unspecified; D51.0 Vitamin B12 deficiency anemia due to intrinsic factor deficiency; G89.29 Other chronic pain; M25.512 Pain in left shoulder; E78.5 Hyperlipidemia, unspecified; G46.4 Cerebellar stroke syndrome; E66.01 Morbid (severe) obesity due to excess calories; F25.0 Schizoaffective disorder, bipolar type; F41.9 Anxiety disorder, unspecified; F31.9 Bipolar disorder, unspecified; Z68.36 Body mass index [BMI] 36.0-36.9, adult; Z86.73 Personal history of transient ischemic attack (TIA), and cerebral infarction without residual deficits; Z95.1 Presence of aortocoronary bypass graft; Z87.891 Personal history of nicotine dependence; Z79.82 Long term (current) use of aspirin; Z79.4 Long term (current) use of insulin

== ENCOUNTER 2020-05-20 06:13 | Day surgery (SDC) | payer OTHER, BC ==
[~2020-05-20] VITALS: Ht 175.3 cm; Wt 103.0 kg
[~2020-05-20 06:13] MED LIST changes: -HYDROCODON-ACE1 EAC7 PO; -KEFLEX500 M1 PO; -SENNA-S TABLET1 EACH PO
[2020-05-20 06:56] LABS: HEMOGLOBIN 15.1 gm/dL (14.0-18.0)
[2020-05-20 07:08] LABS: CREATININE 0.8 mg/dL (0.7-1.3); POTASSIUM 4.1 mmol/L (3.5-5.1)
[2020-05-20 07:18] VITALS: BP 149/78
--- NOTE | 2020-05-20 08:32 | EKG ---
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: selena : 1955 Requested By: Vidal Dye Order Number: [id number] MD: Johnnie Colunga Measurements Intervals [place] Rate: 71 P: 44 MT: 170 QRS: -34 QRSD: 116 T: 16 QT: 419 QTc: 456 Interpretive Statements Sinus rhythm Nonspecific intraventricular conduction delay Inferior infarct, old Compared to ECG 10/22/2017 11:43:59 Inferior Q waves are more prominent Electronically Signed On 05-20-2020 8:31:51 CDT by Johnnie Colunga [email or web address] <ELECTRONICALLY SIGNED> By: Johnnie Colunga MD, [facility] 05/20/20 0831 0654 0654 Johnnie Colunga MD, [facility] /EPI
[2020-05-20] MEDS ORDERED: HYDROCODON-ACE1 EAC7 PO (09:50)
[2020-05-20] MEDS ORDERED: SENNA-S TABLET1 EACH PO (09:50)
[2020-05-20] MEDS ORDERED: KEFLEX500 M1 PO (09:50)
[2020-05-20 10:00] VITALS: BP 149/78
--- NOTE | 2020-05-22 17:07 | PATH ---
[facility] [address] [place] [address] PATHOLOGY RPT PROCEDURE Name: INA HELMS Britt Room #: DEP [facility] M.R.#: [id number] Admission: 05/20/20 Date of : 55 Discharge: 05/20/20 Report #: [id number] Path Case #: [id number] LCA Accession Number: [id number] . 01 Material submitted: . gluteal cleft - BILATERAL GLUTEAL ULCERS. Modifiers: bilateral . 01 Clinician provided ICD-10: y . 01 Clinical history: . Debridement decubitus ulcer, Covid . 02 Diagnosis: Bilateral gluteal ulcers, debridement: - Skin and subcutaneous tissue with ulceration and gangrenous necrosis, history of gluteal ulcers. 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 02 Electronically signed: . Lou Henry MD, Pathologist NPI- [id number] . 01 Gross description: . The specimen is received in formalin, labeled "Ina Helms, bilateral gluteal ulcers". Received is a single segment of pink-solorzano to solorzano-lux skin with attached underlying soft tissue measuring 2.1 x 1.0 x 0.4 cm in greatest dimensions. The specimen is bisected and entirely submitted in cassette A1. The specimen is held within formalin for 24 hours prior to microtomy. (CAA; 05/20/2020) QAC/QAC 05/20/2020 1546 Local . 02 Pathologist provided ICD-10: L98.419 . 02 CPT . 547906 Specimen Comment: A courtesy copy of this report has been sent to [phone] Specimen Comment: [phone], Specimen Comment: Report sent to ,DR SPRAGUE / DR DELATORRE Performed at: [address], [place] [id number] MD Yoni Holt MD Phone: [phone] [address] [place] [address] PATHOLOGY RPT PROCEDURE Name: INA HELMS Room #: DEP [facility] Matthew#: [id number] Admission: 05/20/20 Date of : 55 Discharge: 05/20/20 Report #: [id number] Path Case #: [id number] Performed at: [address] [id number] MD Lou Henry MD Phone: [phone]
== END 2020-05-20 10:00 | disposition home or self-care (01) ==
LOC: OR 06:13 → TBA 06:14 → OR 10:00
PROVIDERS: ATTEND Surgery
DX: T81.89XA Other complications of procedures, not elsewhere classified, initial encounter (principal); L89.329 Pressure ulcer of left buttock, unspecified stage; L89.319 Pressure ulcer of right buttock, unspecified stage; I10 Essential (primary) hypertension; E78.00 Pure hypercholesterolemia, unspecified; F31.9 Bipolar disorder, unspecified; E11.9 Type 2 diabetes mellitus without complications; Z11.59 Encounter for screening for other viral diseases; Z98.890 Other specified postprocedural states; Z79.899 Other long term (current) drug therapy; Z96.612 Presence of left artificial shoulder joint; Z87.891 Personal history of nicotine dependence; Z79.4 Long term (current) use of insulin; Z88.0 Allergy status to penicillin; Z88.8 Allergy status to other drugs, medicaments and biological substances; Y83.8 Other surgical procedures as the cause of abnormal reaction of the patient, or of later complication, without mention of misadventure at the time of the procedure
CPT/HCPCS: 50010; 50101; 50386; 50403; 57119; 57120; 62110; 62900; 70005

== ENCOUNTER → 2020-05-31 | Outpatient (CLI) | payer OTHER, BC ==
[~2020-05-31] MED LIST changes: +HYDROCODON-ACE1 EAC7 PO; +KEFLEX500 M1 PO; +SENNA-S TABLET1 EACH PO
== END ==
LOC: HYPER 10:28
PROVIDERS: ATTEND Emergency Medicine
DX: E11.628 Type 2 diabetes mellitus with other skin complications (principal); S31.819D Unspecified open wound of right buttock, subsequent encounter; S31.829D Unspecified open wound of left buttock, subsequent encounter; R21 Rash and other nonspecific skin eruption; A60.02 Herpesviral infection of other male genital organs; G46.4 Cerebellar stroke syndrome; J01.40 Acute pansinusitis, unspecified; D51.0 Vitamin B12 deficiency anemia due to intrinsic factor deficiency; E78.5 Hyperlipidemia, unspecified; I10 Essential (primary) hypertension; E66.01 Morbid (severe) obesity due to excess calories; F25.0 Schizoaffective disorder, bipolar type; F31.9 Bipolar disorder, unspecified; Z68.36 Body mass index [BMI] 36.0-36.9, adult; Z86.73 Personal history of transient ischemic attack (TIA), and cerebral infarction without residual deficits; Z79.4 Long term (current) use of insulin; Z87.891 Personal history of nicotine dependence; Z79.82 Long term (current) use of aspirin; X58.XXXD Exposure to other specified factors, subsequent encounter

== ENCOUNTER → 2020-06-20 | Outpatient (CLI) | payer OTHER, BC | LOC: HYPER 09:13 | PROVIDERS: ATTEND Emergency Medicine | DX: E11.628 Type 2 diabetes mellitus with other skin complications (principal); R21 Rash and other nonspecific skin eruption; A60.02 Herpesviral infection of other male genital organs; J01.40 Acute pansinusitis, unspecified; D51.0 Vitamin B12 deficiency anemia due to intrinsic factor deficiency; E78.5 Hyperlipidemia, unspecified; G46.4 Cerebellar stroke syndrome; G89.29 Other chronic pain; M25.512 Pain in left shoulder; I10 Essential (primary) hypertension; F25.0 Schizoaffective disorder, bipolar type; E66.01 Morbid (severe) obesity due to excess calories; F41.9 Anxiety disorder, unspecified; Z68.36 Body mass index [BMI] 36.0-36.9, adult; Z87.891 Personal history of nicotine dependence; Z95.1 Presence of aortocoronary bypass graft; Z79.4 Long term (current) use of insulin; Z79.82 Long term (current) use of aspirin ==

== ENCOUNTER → 2020-07-09 | Outpatient (CLI) | payer OTHER, BC | LOC: HYPER 09:42 | PROVIDERS: ATTEND Emergency Medicine | DX: R21 Rash and other nonspecific skin eruption (principal); A60.02 Herpesviral infection of other male genital organs; E11.9 Type 2 diabetes mellitus without complications; E66.01 Morbid (severe) obesity due to excess calories; E78.5 Hyperlipidemia, unspecified; D51.0 Vitamin B12 deficiency anemia due to intrinsic factor deficiency; G46.4 Cerebellar stroke syndrome; I10 Essential (primary) hypertension; J01.40 Acute pansinusitis, unspecified; F31.9 Bipolar disorder, unspecified; F25.0 Schizoaffective disorder, bipolar type; F41.9 Anxiety disorder, unspecified; Z68.34 Body mass index [BMI] 34.0-34.9, adult; Z86.73 Personal history of transient ischemic attack (TIA), and cerebral infarction without residual deficits; Z87.891 Personal history of nicotine dependence; Z95.1 Presence of aortocoronary bypass graft ==

== ENCOUNTER → 2020-07-18 | Outpatient (CLI) | payer OTHER, BC | LOC: MRI 12:27 | PROVIDERS: ATTEND Psychiatry & Neurology Neuromuscular Medicine | DX: I63.9 Cerebral infarction, unspecified (principal); E11.59 Type 2 diabetes mellitus with other circulatory complications; Z79.4 Long term (current) use of insulin; Z68.32 Body mass index [BMI] 32.0-32.9, adult ==

== ENCOUNTER → 2020-07-30 | Outpatient (CLI) | payer OTHER, BC | LOC: HYPER 09:52 | PROVIDERS: ATTEND Emergency Medicine | DX: R21 Rash and other nonspecific skin eruption (principal); A60.02 Herpesviral infection of other male genital organs; E11.9 Type 2 diabetes mellitus without complications; E66.01 Morbid (severe) obesity due to excess calories; E78.5 Hyperlipidemia, unspecified; D51.0 Vitamin B12 deficiency anemia due to intrinsic factor deficiency; G46.4 Cerebellar stroke syndrome; I10 Essential (primary) hypertension; J01.40 Acute pansinusitis, unspecified; F31.9 Bipolar disorder, unspecified; F25.0 Schizoaffective disorder, bipolar type; F41.9 Anxiety disorder, unspecified; Z86.73 Personal history of transient ischemic attack (TIA), and cerebral infarction without residual deficits; Z68.34 Body mass index [BMI] 34.0-34.9, adult; Z87.891 Personal history of nicotine dependence; Z95.1 Presence of aortocoronary bypass graft ==

== ENCOUNTER → 2020-08-14 | Outpatient (CLI) | payer OTHER, BC | LOC: HYPER 14:00 | PROVIDERS: ATTEND Emergency Medicine | DX: R21 Rash and other nonspecific skin eruption (principal); A60.02 Herpesviral infection of other male genital organs; E11.9 Type 2 diabetes mellitus without complications; E66.01 Morbid (severe) obesity due to excess calories; E78.5 Hyperlipidemia, unspecified; D51.0 Vitamin B12 deficiency anemia due to intrinsic factor deficiency; G46.4 Cerebellar stroke syndrome; G89.29 Other chronic pain; I10 Essential (primary) hypertension; J01.40 Acute pansinusitis, unspecified; F25.0 Schizoaffective disorder, bipolar type; F41.9 Anxiety disorder, unspecified; F31.9 Bipolar disorder, unspecified; Z86.73 Personal history of transient ischemic attack (TIA), and cerebral infarction without residual deficits; Z95.1 Presence of aortocoronary bypass graft; Z68.34 Body mass index [BMI] 34.0-34.9, adult; Z87.891 Personal history of nicotine dependence ==

== ENCOUNTER → 2020-09-17 | Outpatient (CLI) | payer OTHER, BC | LOC: HYPER 09:50 | PROVIDERS: ATTEND Emergency Medicine | DX: R21 Rash and other nonspecific skin eruption (principal); A60.02 Herpesviral infection of other male genital organs; D51.0 Vitamin B12 deficiency anemia due to intrinsic factor deficiency; E66.01 Morbid (severe) obesity due to excess calories; E78.5 Hyperlipidemia, unspecified; G46.4 Cerebellar stroke syndrome; G89.29 Other chronic pain; I10 Essential (primary) hypertension; J01.40 Acute pansinusitis, unspecified; F25.0 Schizoaffective disorder, bipolar type; F41.9 Anxiety disorder, unspecified; F31.9 Bipolar disorder, unspecified; Z86.73 Personal history of transient ischemic attack (TIA), and cerebral infarction without residual deficits; Z68.34 Body mass index [BMI] 34.0-34.9, adult; Z87.891 Personal history of nicotine dependence; Z96.651 Presence of right artificial knee joint; Z95.1 Presence of aortocoronary bypass graft ==

== ENCOUNTER 2020-10-04 09:43 | Inpatient (IN) | payer OTHER, BC ==
[~2020-10-04] VITALS: Ht 175.3 cm; Wt 97.5 kg
[2020-10-04 09:48] VITALS: BP 140/76
[2020-10-04 10:11] LABS: HEMATOCRIT 37.7 % (42.0-52.0); MCH 30.4 pg (26.0-34.0); MCHC 34.4 g/dL (28.0-37.0); MCV 88.4 fL (80.0-100.0); RBC 4.27 mil/uL (4.50-6.00); RDW 15.5 % (10.5-14.5); WBC 8.2 thou/uL (4.0-11.0)
[2020-10-04 10:20] LABS: CREATININE 0.9 mg/dL (0.7-1.3); POTASSIUM 3.5 mmol/L (3.5-5.1)
[2020-10-04 10:26] LABS: ALBUMIN 3.6 g/dL (3.4-5.0); TOTAL BILIRUBIN 0.7 mg/dL (0.2-1.0); TOTAL PROTEIN 6.9 g/dL (6.4-8.2)
[2020-10-04 11:56] LABS: URINE BILIRUBIN NEGATIVE (Negative); URINE BLOOD NEGATIVE (Negative); URINE CLARITY CLEAR; URINE COLOR YELLOW; URINE GLUCOSE-RANDOM* NEGATIVE (Negative); URINE KETONES NEGATIVE (Negative); URINE LEUKOCYTES-REFLEX NEGATIVE (Negative); URINE NITRITE-REFLEX NEGATIVE (Negative); URINE PROTEIN (DIPSTICK) NEGATIVE (Negative); URINE UROBILINOGEN 0.2 E.U./dl (0.2-1.0)
--- NOTE | 2020-10-04 12:28 | EKG ---
[facility] [address] [place] [address] ELECTROCARDIOGRAM REPORT Name: INA HELMS Room #: 170-9 ADM IN M.R.#: [id number] Admission: 10/04/20 Attend Phys: Jayleen Carrizales Discharge: Date of : 55 Report #: [id number] THIS REPORT FOR: cc: Sami Hamilton Steven F. DO Santiago, Patrick MD [facility] ~ THIS REPORT FOR: //name// [facility] ED Test Date: 2020-10-04 Test Time: 11:24:46 Pat Name: INA HELMS Department: Room: 170 Gender: M Smoke Eater: gaye : 1955 Requested By: Jaden Geronimo Order Number: [id number] MD: Oscar Velasquez Measurements Intervals [place] Rate: 91 P: 44 [place]: 182 QRS: -16 QRSD: 114 T: 121 QT: 418 QTc: 515 Interpretive Statements Pacemaker spikes or artifacts Sinus rhythm Ventricular premature complex Prolonged QT interval Compared to ECG 05/20/2020 06:54:10 Ventricular premature complex(es) now present Left bundle-branch block now present Prolonged QT interval now present Intraventricular conduction delay no longer present Myocardial infarct finding no longer present Electronically Signed On 10-04-2020 12:28:35 [employer] by Oscar Velasquez [email or web address] <ELECTRONICALLY SIGNED> By: Oscar Velasquez MD, [facility] 10/04/20 1228 1124 1124 Oscar Velasquez MD, [facility] /EPI
[2020-10-04 13:22] LABS: TROPONIN-I <0.06 ng/mL (<0.06)
[2020-10-04 16:42] VITALS: BP 114/62
[2020-10-04 16:50] VITALS: BP 121/65
[2020-10-04 17:15] VITALS: BP 144/79
[2020-10-05 07:14] VITALS: BP 145/75
[2020-10-05 08:53] LABS: HEMATOCRIT 35.1 % (42.0-52.0); HEMOGLOBIN 11.9 gm/dL (14.0-18.0); MCH 30.3 pg (26.0-34.0); MCHC 33.9 g/dL (28.0-37.0); MCV 89.6 fL (80.0-100.0); PLATELET COUNT 270 thou/uL (150-400); RBC 3.91 mil/uL (4.50-6.00); RDW 15.7 % (10.5-14.5)
[2020-10-05 09:25] LABS: ALBUMIN 3.1 g/dL (3.4-5.0); CALCIUM 8.7 mg/dL (8.5-10.1); CREATININE 0.8 mg/dL (0.7-1.3); POTASSIUM 3.2 mmol/L (3.5-5.1); TOTAL BILIRUBIN 0.5 mg/dL (0.2-1.0)
--- NOTE | 2020-10-05 11:54 | HC ---
[facility] [place] [address] CONSULTATION Name: INA HELMS Room #: 437-P ADM IN M.R.#: [id number] Admission: 10/04/20 Attend Phys: Jayleen Carrizales Discharge: Date of : 55 Report #: [id number] THIS REPORT FOR: cc: Sami Hamilton,Taz Augustine MD ~ DATE OF SERVICE: 10/04/2020 INFECTIOUS DISEASE CONSULTATION ATTENDING PHYSICIAN: Dr. Carrizales. REASON FOR EVALUATION: Suspected surgical site infection, right lower extremity with residual making eruptions, possible cellulitis. HISTORY OF SUBJECTIVE: Chart reviewed, the patient is examined. This is a 65-year-old gentleman with history of diabetes mellitus, hypertension, who apparently admitted due to subsequent repeated falls. He notes it seems to be more associated with the head and neck as opposed to weakness is notable, he has had recent total knee arthroplasty. He states 2 weeks ago, records suggest perhaps longer up to 4 weeks ago. He had progressive weakness. It is not clear if he had significant fevers or chills. He does have emphasized significant pain associated with the knee, does admit some mild dyspnea. Evaluation was noted to have marked hyponatremia, sodium is 120. Creatinine was normal at 0.9. CT of the head was otherwise unremarkable. Urinalysis unremarkable as well. Due to concern about a cellulitic process, he was in part empirically on vancomycin. ALLERGIES: PENICILLINS, WHICH CAUSES URTICARIA; CIPRO AND LAMOTRIGINE. CURRENT MEDICATIONS: Include oxybutynin, olanzapine, lisinopril, atorvastatin, enoxaparin, carvedilol, gabapentin, vancomycin, insulin lispro, tramadol, zolpidem, p.r.n. analgesics and antiemetics. PAST MEDICAL HISTORY: Diabetes mellitus type 1, history of hypertension, hyperlipidemia, has known coronary artery disease with previous stenting, has multiple orthopedic surgeries, most recently a right total knee arthroplasty. SOCIAL HISTORY: Former smoker cigars roughly 30 years. No ethanol. No illicit drug use recently. PHYSICAL EXAMINATION: GENERAL: He appears somewhat chronically ill, undernourished. He is pleasant. He is mildly encephalopathic, in oawt-va-jifgfpdp distress. [address] [address] CONSULTATION Name: INA HELMS Room #: 437-P [facility] IN ..#: [id number] Admission: 10/04/20 Attend Phys: Jaylene Carrizales Discharge: Date of : 55 Report #: [id number] VITAL SIGNS: Temperature 97.6, pulse 92, respirations 16, blood pressure 140/76. SKIN: Warm, dry, no rashes. HEENT: Otherwise, normocephalic. Extraocular muscles are intact. NECK: Supple. LUNGS: Diminished breath sounds. Few scattered crackles at the bases. HEART: Regular. I do not appreciate any murmur. ABDOMEN: Soft, nontender. There are no peritoneal signs. EXTREMITIES: Right lower extremity about the knee, there is erythrodermic type rash not exquisitely tender. I do not appreciate any fluctuance. There is no incisional dehiscence from the site. There is some blanching distal lower extremities. Warm to touch. RECTAL: Deferred. LABORATORY DATA: Sodium 120, potassium 3.5, chloride 85, bicarbonate is 26, anion gap of 9, BUN and creatinine 7 and 0.9. AST of 27, ALT of 39, albumin of 3.6. Estimated GFR of 85. CBC: White count of 8.2, H and H 13.0 and 37.7, platelets of 301. Urinalysis is unremarkable. Venous Doppler of lower extremity showed no evidence of DVT, right lower extremity. Chest x-ray, no acute process. TSH 1.45. ASSESSMENT AND PLAN: Inflammatory eruption involving the site of previous right total knee arthroplasty sort from 2-4 weeks ago. Certainly, can exclude a cellulitic process at this point. We will continue empiric therapy. I think vancomycin is a reasonable choice given the likelihood of skin related issue with Staph or Strep, presumably would be less virulent coag-negative Staphylococcus, which are often penicillinase producing, so clinically it is not entirely clear what the etiology of the hyponatremia is, so correcting it may help. May need a neuro evaluation for his otherwise issue with falling, which he attributes in part to dizziness. Consider Neurology evaluation. We will add incentive spirometry. <ELECTRONICALLY SIGNED> By: Taz Marte MD 10/05/20 1154 1429 0743 Taz Marte MD /nt
[2020-10-05 13:02] LABS: ABSOLUTE NEUTROPHILS 3.7 thou/uL (1.4-8.2); MYELOCYTES 1 %
[2020-10-05 13:04] LABS: ANISOCYTOSIS 1+
[2020-10-05 15:54] VITALS: BP 130/74
[2020-10-05 20:49] VITALS: BP 153/91
--- NOTE | 2020-10-06 03:06 | NUR ---
ASSESSED AT START OF SHIFT 1900. PT A&OX4. UP WITH SBA.IV INTACT WITH FLUIDS INFUSING. PT REQUESTED SLEEPING MEDS. NIGHT TIME MEDS GIVEN AND PT JESSICA IT WELL. URINAL BY BEDSIDE. FALL PREC IN PLACE AND CALL LIGHT AT REACH WILL CONT WITH POC TILL EOS.
[2020-10-06 03:15] VITALS: BP 140/88
[2020-10-06 05:19] LABS: ALBUMIN 3.3 g/dL (3.4-5.0); CALCIUM 8.6 mg/dL (8.5-10.1); CREATININE 0.7 mg/dL (0.7-1.3); PHOSPHORUS 2.9 mg/dL (2.5-4.9); POTASSIUM 3.4 mmol/L (3.5-5.1)
[2020-10-06 07:30] VITALS: BP 157/78
[2020-10-06] MEDS ORDERED: MINOCYCLINE 5050 M1 PO (13:03)
--- NOTE | 2020-10-06 13:11 | NUR ---
ASSUMED CARE AT 0700. PT IS A&O X4. PT IS PLESANT. PT IS ABLE TO WALK TO THE BATHROOM WITHOUT WALKER. PT DENIES ANY PAIN, N,V,D. VSS. INSULIN WAS GIVEN WITH MEAL. FALL PRECAUTION. CALL LIGHT WITHIN REACH. SODIUM LEVEL IS INCREASING TO 132. RA. PT WILL BE D/C. IV WILL D/C. PT WAS EDUCATED ON CUTTING BACK ON ICE TEA AND DRINKING MORE WATER TO HELP WITH POTASSIUM LEVEL.
[2020-10-06 13:13] VITALS: BP 157/78
== END 2020-10-06 14:14 | disposition home or self-care (01) | DRG 641 ==
LOC: ER 09:43 → 4S 12:05 → EROBS 12:05 → 4S 17:05
PROVIDERS: Emergency Medicine; Specialist; ADMIT Hospitalist; ATTEND Hospitalist
DX: E87.1 Hypo-osmolality and hyponatremia (principal); L03.115 Cellulitis of right lower limb; E86.0 Dehydration; Z96.651 Presence of right artificial knee joint; F31.9 Bipolar disorder, unspecified; I10 Essential (primary) hypertension; Z96.612 Presence of left artificial shoulder joint; E11.9 Type 2 diabetes mellitus without complications; E78.00 Pure hypercholesterolemia, unspecified; I25.10 Atherosclerotic heart disease of native coronary artery without angina pectoris; R63.1 Polydipsia; M25.59 Pain in other specified joint; Z96.659 Presence of unspecified artificial knee joint; G47.30 Sleep apnea, unspecified; Z86.73 Personal history of transient ischemic attack (TIA), and cerebral infarction without residual deficits; Z95.5 Presence of coronary angioplasty implant and graft; Z79.4 Long term (current) use of insulin; Z88.1 Allergy status to other antibiotic agents; Z88.0 Allergy status to penicillin; Z87.891 Personal history of nicotine dependence; Z79.899 Other long term (current) drug therapy
CPT/HCPCS: 10195

== ENCOUNTER → 2020-10-14 | Outpatient (CLI) | payer OTHER, BC ==
[~2020-10-14] MED LIST changes: +MINOCYCLINE 5050 M1 PO
== END ==
LOC: MRI 09:44
PROVIDERS: ATTEND Neuromusculoskeletal Medicine & OMM
DX: I67.82 Cerebral ischemia (principal); G93.89 Other specified disorders of brain; R41.82 Altered mental status, unspecified

== ENCOUNTER → 2021-05-06 | Outpatient (CLI) | payer OTHER, BC | LOC: RAD 15:27 | PROVIDERS: ATTEND Neuromusculoskeletal Medicine & OMM | DX: J18.8 Other pneumonia, unspecified organism (principal) ==

== ENCOUNTER 2021-06-19 10:18 | Emergency (ER) | payer OTHER, BC ==
[~2021-06-19] VITALS: Ht 175.3 cm; Wt 100.7 kg
[2021-06-19 10:18] VITALS: BP 142/85
== END 2021-06-19 10:55 | disposition home or self-care (01) ==
LOC: ER 10:18
PROVIDERS: Student in an Organized Health Care Education/Training Program
DX: Z01.812 Encounter for preprocedural laboratory examination (principal); Z20.822 Contact with and (suspected) exposure to COVID-19; E11.9 Type 2 diabetes mellitus without complications; I10 Essential (primary) hypertension; E78.00 Pure hypercholesterolemia, unspecified; I25.10 Atherosclerotic heart disease of native coronary artery without angina pectoris; F31.9 Bipolar disorder, unspecified; K43.9 Ventral hernia without obstruction or gangrene; Z98.890 Other specified postprocedural states; Z79.51 Long term (current) use of inhaled steroids; Z79.891 Long term (current) use of opiate analgesic; Z79.899 Other long term (current) drug therapy; Z88.0 Allergy status to penicillin; Z88.1 Allergy status to other antibiotic agents; Z88.8 Allergy status to other drugs, medicaments and biological substances; Z87.891 Personal history of nicotine dependence

== ENCOUNTER → 2021-07-29 | Outpatient (CLI) | payer OTHER, BC ==
[2021-07-29 10:17] LABS: CREATININE 0.9 mg/dL (0.7-1.3)
== END ==
LOC: CAT 08:54
PROVIDERS: ATTEND Surgery
DX: K42.0 Umbilical hernia with obstruction, without gangrene (principal); N30.90 Cystitis, unspecified without hematuria